=== PATIENT | male | born 1970 | race American Indian/Alaskan Native ===

== ENCOUNTER 2017-06-15 07:28 | Day surgery (SDC) | payer MEDICARE, OTHER ==
--- NOTE | 2017-06-15 09:23 | CP.SDSHP ---
Same Day Surgery H & P - History Proposed Procedure: EGD / COLONSCOPY Pre-Op Diagnosis: SEE NOTES - Previous Medical/Surgical History Cardiac: Hypertension Neuro: Other Misc: Other Pain: 4.Moderate Pain - Allergies Allergies: Allergies Penicillins Allergy (Verified 06/15/17 08:20) FEVER SWEATING shellfish derived Allergy (Verified 06/15/17 08:20) RASH PT NOT SURE OF REACTION SEASONAL Allergy (Uncoded 06/15/17 08:22) CONGESTION - Physical Exam General Appearance: N Vital Signs: Vital Signs 06/15/17 08:00 Temperature 98 F Pulse Rate 80 Respiratory 20 Rate Blood Pressure 109/73 O2 Sat by Pulse 97 Oximetry Neuro: WNL Heart: Other Lungs: WNL GI: Other - {Optional Preform as Required} Breast: WNL Abdomen: Other Rectal: Other Integument: WNL : WNL Ortho: Other ENT: WNL - Impression Pt. Evaluated Today:Candidate for Anesthesia & Procedure: Yes - Date & Time Time: :23 Short Stay Discharge - Short Stay Discharge Admitting Diagnosis/Reason for Visit: MELENA / CHANGE IN BOWEL MOVEMENT Disposition: HOME/ ROUTINE
[2017-06-15] MEDS ORDERED: Lactated Ringer's 1,000 ML IV ONE (09:25)
[2017-06-15] MEDS ORDERED: Propofol 10 mg/ml Inj (20 ML) ONE (09:29)
[2017-06-15] MEDS ORDERED: Midazolam 2 MG/2 ML VIAL ONE (09:29)
[2017-06-15 10:09] VITALS: TEMP 98.4; O2SAT 100
[2017-06-15] MEDS ORDERED: Pantoprazole 40 mg EC Tab PO ONE (10:20)
[2017-06-15 11:13] VITALS: BP 121/76; PULSE 88; RESP 16
== END 2017-06-15 11:00 | disposition home or self-care (01) ==
LOC: C.ENDO 07:28
PROVIDERS: ATTEND Specialist
DX: K92.1 Melena (principal); R19.4 Change in bowel habit; K60.2 Anal fissure, unspecified; K64.8 Other hemorrhoids; K44.9 Diaphragmatic hernia without obstruction or gangrene; K29.70 Gastritis, unspecified, without bleeding
CPT/HCPCS: 43239; 45380; 88305; 88342; J2001; J2250; J2704; J7120

== ENCOUNTER 2018-04-12 13:22 | Emergency (ER) | payer MEDICARE, OTHER ==
[2018-04-12 13:42] VITALS: O2SAT 97
[2018-04-12] MEDS ORDERED: Naproxen 550 mg Tab PO STA (14:03)
[2018-04-12] MEDS ORDERED: Naproxen 550 mg Tab PO ONE (14:09)
--- NOTE | 2018-04-12 14:56 | C.PDOC ---
History Of Present Illness 47 y/o male presents to the ER complaining of bilateral buttock pain which has been present for the past 1 month. Patient states that the pain radiates to the thighs. Patient reports that the pain is worse with movement. He notes that he saw his PMD yesterday and was prescribed Gabapentin but he has not started the medication yet. He notes that he has history of similar episodes in the past. Denies having trauma, change in sensation, urinary symptoms, bowel incontinence, abdominal pain, lower leg pain or swelling, and CP. Time Seen by Provider: 04/12/18 13:39 Chief Complaint (Nursing): Lower Extremity Problem/Injury History Per: Patient History/Exam Limitations: no limitations Onset/Duration Of Symptoms: Days Current Symptoms Are (Timing): Still Present Past Medical History Reviewed: Historical Data, Nursing Documentation, Vital Signs Vital Signs: Last Vital Signs Temp 98.4 F 04/12/18 15:29 Pulse 85 04/12/18 15:29 Resp 16 04/12/18 15:29 BP 125/86 04/12/18 15:29 Pulse Ox 97 04/12/18 16:59 - Medical History PMH: Bronchitis, Gastritis, HTN, Paranoia, Chronic Kidney Disease, Schizophrenia (H/O SCHIZOAFFECTIVE - DEPRESSIVE TYPE) Other Surgeries: Hx of surgeries - [facility] Procedures INFLUENZA VACCINATION (09/15/13) THORACENTESIS (09/15/13) VACCINATION NEC (09/15/13) Family History: States: No Known Family Hx - Social History Hx Tobacco Use: Yes Hx Alcohol Use: No Hx Substance Use: No - Immunization History Hx Tetanus Toxoid Vaccination: No Hx Influenza Vaccination: No Hx Pneumococcal Vaccination: No Review Of Systems Except As Marked, All Systems Reviewed And Found Negative. Cardiovascular: Negative for: Chest Pain Gastrointestinal: Negative for: Abdominal Pain Genitourinary: Negative for: Dysuria, Frequency, Incontinence, Hematuria Musculoskeletal: Positive for: Other (bilateral buttock pain) Neurological: Negative for: Weakness, Numbness Physical Exam - Physical Exam Appears: Non-toxic, No Acute Distress Skin: Normal Color, Warm, Dry Head: Atraumatic, Normacephalic Eye(s): bilateral: Normal Inspection, EOMI Nose: Normal Oral Mucosa: Moist Neck: Normal ROM, Supple Chest: Symmetrical Cardiovascular: Rhythm Regular Respiratory: Normal Breath Sounds, No Accessory Muscle Use Extremity: Normal ROM, Tenderness (tenderness to bilateral buttocks and bilateral posterior thighs), No Calf Tenderness, No Swelling Extremity: Bilateral: Atraumatic Pulses: Left Dorsalis Pedis: Normal, Right Dorsalis Pedis: Normal Neurological/Psych: Oriented x3, Normal Speech Gait: Steady ED Course And Treatment ECG: Interpreted By Me (Dr Argueta), Viewed By Me ECG Rhythm: Sinus Rhythm ECG Interpretation: Normal Rate From EC O2 Sat by Pulse Oximetry: 97 (RA) Pulse Ox Interpretation: Normal Progress Note: Patient treated with Naproxen PO. On re-evaluation, patient feels better. Denies back pain, incontince, change in sensation, sob, or leg swelling. Pt notes he would like to walk home. Notes pain has improved. Patient has been discharged with fdc ride and instructed to follow up with PMD in 1-2 days. Previous notes evaluated, pt has similar symptoms in 07/2014 Disposition - Disposition Referrals: Isidro Singh MD [Staff Provider] - Disposition: HOME/ ROUTINE Disposition Time: 14:53 Condition: STABLE Additional Instructions: Follow up with your primary doctor in1-2 days. Return to ER if symptoms persist or worsen. Instructions: Muscle Strain (DC) Forms: [facility] (German) - Clinical Impression Clinical Impression: Muscle strain - PA / BREAKFAST HOST / Resident Statement MD/DO has reviewed & agrees with the documentation as recorded. - Scribe Statement The provider has reviewed the documentation as recorded by the Scribe Rosanne Feliz Provider Attestation All medical record entries made by the Scribe were at my direction and personally dictated by me. I have reviewed the chart and agree that the record accurately reflects my personal performance of the history, physical exam, medical decision making, and the department course for this patient. I have also personally directed, reviewed, and agree with the discharge instructions and disposition.
[2018-04-12 15:33] VITALS: BP 125/86; PULSE 85; RESP 16; TEMP 98.4
--- NOTE | 2018-04-13 12:06 | CARD ---
APPROVED REPORT Date of service: 04/12/2018 EKG Measurement Heart [id number] <Conclusion> Normal sinus rhythm Normal ECG
== END 2018-04-12 15:33 | disposition home or self-care (01) ==
LOC: C.ER 13:22
DX: S39.012A Strain of muscle, fascia and tendon of lower back, initial encounter (principal); X58.XXXA Exposure to other specified factors, initial encounter